=== PATIENT | male | born 1960 | race Hispanic/Latino ===

== ENCOUNTER 2017-04-10 13:34 | Emergency (ER) | payer BC, OTHER ==
[2017-04-10 13:39] VITALS: BMI 36.1
[2017-04-10 13:42] VITALS: RESP 18
[2017-04-10 15:34] LABS: RBC URINE 141 /hpf (0-3); URINE BILIRUBIN NEGATIVE (NEGATIVE); URINE BLOOD 3+ (NEGATIVE); URINE COLOR Amber (YELLOW); URINE GLUCOSE (UA) NORMAL (Normal); URINE KETONE NEGATIVE (NEGATIVE); URINE LEUKOCYTE ESTERASE 2+ Leu/uL (Negative); URINE PROTEIN 2+ mg/dL (NEGATIVE); URINE UROBILINOGEN NORMAL mg/dL (0.2-1.0)
[2017-04-10 15:36] LABS: URINE BACTERIA MANY (<OCC); WBC URINE 527 /hpf (0-5)
[2017-04-10 15:53] VITALS: BP 113/76; PULSE 90; TEMP 98.5
[2017-04-10 15:55] VITALS: O2SAT 97
--- NOTE | 2017-04-10 15:55 | C.PDOC ---
History Of Present Illness Patient is a 56 y/o male who presents to the ED with complaints of R epididymal pain, urinary hesitancy, and slight hematuria for the last 2 days. Patient has no Hx of prostate/urinary tract infection. Denies fever or chills. Patient has no other physical complaints at this time. Time Seen by Provider: 04/10/17 14:24 Chief Complaint (Nursing): Male Genitourinary History Per: Patient History/Exam Limitations: no limitations Onset/Duration Of Symptoms: Days (x2 days ) Current Symptoms Are (Timing): Still Present Recent travel outside of the [place]: No Past Medical History Reviewed: Historical Data, Nursing Documentation, Vital Signs Vital Signs: Last Vital Signs Temp 98.5 F 04/10/17 15:52 Pulse 90 04/10/17 15:52 Resp 18 04/10/17 15:52 BP 113/76 04/10/17 15:52 Pulse Ox 97 04/10/17 16:00 - Medical History PMH: No Chronic Diseases Surgical History: No Surg Hx - [facility] Procedures LOCAL EXCIS BREAST LES (03/19/13) Family History: States: No Known Family Hx - Social History Hx Alcohol Use: No Hx Substance Use: No - Immunization History Hx Tetanus Toxoid Vaccination: No Hx Influenza Vaccination: No Hx Pneumococcal Vaccination: No Review Of Systems Constitutional: Negative for: Fever, Chills Cardiovascular: Negative for: Chest Pain Respiratory: Negative for: Shortness of Breath Gastrointestinal: Negative for: Nausea, Vomiting Genitourinary: Positive for: Frequency, Hematuria, Other (R epididymal pain. ) Physical Exam - Physical Exam Appears: Well, Non-toxic, No Acute Distress Skin: Normal Color, Warm, Dry Head: Atraumatic, Normacephalic Oral Mucosa: Moist Chest: Symmetrical Cardiovascular: Rhythm Regular, No Murmur Respiratory: Normal Breath Sounds, No Rales, No Rhonchi, No Wheezing Gastrointestinal/Abdominal: Soft, No Tenderness Male Genital: Testicular Tenderness (Boggy R epididymis), Testicular Swelling ( enlargeed, smooth 45g; nontender.) ED Course And Treatment O2 Sat by Pulse Oximetry: 97 Progress Note: Bedside bladder scan < 50 cc's. Medical Decision Making Medical Decision Making: Plan: Cipro, Motrin, and Flomax administered. Urine C&S ordered. Bladder scan ordered. UTI, ? prostatitis, epididimytis Empirically started on Cipro 500 BID x 14 days Flomax for urinary hesitancy Prostate enlarged but NOT tender/nodular Follow-up with Urology for outpatient scrotal/prostate US and PSA when infection resolved. Disposition Doctor Will See Patient In The: Office Counseled Patient/Family Regarding: Studies Performed, Diagnosis - Disposition Referrals: Catia Kc MD [Staff Provider] - Michael Childers MD [Staff Provider] - Disposition: HOME/ ROUTINE Disposition Time: 15:59 Condition: GOOD Additional Instructions: Sigue Cipro 500 mg (antibiotico) dos veces al maryam (9AM y 9PM) por 2 semanas (14 leavitt) Sigue Flomax 0.4 mg diario para bajar el tamano de la prostata Sigue Advil/Ibuprofeno 600 mg cada 6 horas hallie necessario para dolor/molestia Sigue Pepcid 20 mg en la noche para prevenir irritacio'n del estomago deibido al Advil Sigue con Dr. Childers kathrin semana. Llama manana para hacer lobito. Si llega al punto que no puede orinar, regressa a la yossi de emergncias de pronto. Prescriptions: Ciprofloxacin [Cipro] 1 tab PO BID #27 tab Tamsulosin [Flomax] 0.4 mg PO DAILY #30 cap Instructions: Epididymitis (ED), Urinary Tract Infection in Men (ED) Forms: [employer] (Luxembourgish) Print Language: JAPANESE - Clinical Impression Clinical Impression: Epididymitis, UTI (urinary tract infection), Prostate enlargement, Urinary hesitancy - Scribe Statement The provider has reviewed the documentation as recorded by the Scribnini Franco All medical record entries made by the Scribe were at my direction and personally dictated by me. I have reviewed the chart and agree that the record accurately reflects my personal performance of the history, physical exam, medical decision making, and the department course for this patient. I have also personally directed, reviewed, and agree with the discharge instructions and disposition.
== END 2017-04-10 18:37 | disposition home or self-care (01) ==
LOC: C.ER 13:34
DX: N45.1 Epididymitis (principal); N39.0 Urinary tract infection, site not specified; N40.1 Benign prostatic hyperplasia with lower urinary tract symptoms; R39.11 Hesitancy of micturition